=== PATIENT | female | born 1975 | race Caucasian/White ===

== ENCOUNTER 2016-12-04 00:02 | Emergency (ER) | payer OTHER ==
[~2016-12-04] VITALS: Ht 182.9 cm; Wt 113.6 kg
[2016-12-04 00:05] VITALS: BP 129/74; PULSE 79
[2016-12-04] MEDS ORDERED: GLUCOPHAGE1000 MG PO (00:11)
[2016-12-04] MEDS ORDERED: TOPAMAX200 MG PO (00:12)
[2016-12-04] MEDS ORDERED: SINGULAIR 110 MG/TAB PO (00:13)
[2016-12-04] MEDS ORDERED: THE MEDICINE S200 M2 PO (00:14)
[2016-12-04] MEDS ORDERED: PHARMASSURE MA500 MG PO (00:14)
[2016-12-04] MEDS ORDERED: VOLTAREN SR25 MG/TAB PO (00:15)
[2016-12-04] MEDS ORDERED: RIBOFLAVIN400 MG PO (00:15)
[2016-12-04] MEDS ORDERED: AMERGE 2.5MG T2.5 MG PO (00:16)
[2016-12-04] MEDS ORDERED: MAXALT10 MG (00:17)
[2016-12-04 01:17] VITALS: TEMP 97.9
== END 2016-12-04 01:23 | disposition home or self-care (01) ==
LOC: COL.ER 00:02
DX: H18.822 Corneal disorder due to contact lens, left eye (principal); T15.92XA Foreign body on external eye, part unspecified, left eye, initial encounter; G43.909 Migraine, unspecified, not intractable, without status migrainosus

== ENCOUNTER → 2017-06-03 | Outpatient (CLI) | payer BC ==
[~2017-06-03] MED LIST: AMERGE 2.5MG T2.5 MG PO; GLUCOPHAGE1000 MG PO; MAXALT10 MG; PHARMASSURE MA500 MG PO; RIBOFLAVIN400 MG PO; SINGULAIR 110 MG/TAB PO; THE MEDICINE S200 M2 PO; TOPAMAX200 MG PO; VOLTAREN SR25 MG/TAB PO
== END ==
LOC: MC.RAD 06:58
DX: Z12.31 Encounter for screening mammogram for malignant neoplasm of breast (principal)

== ENCOUNTER 2017-08-02 07:07 | Day surgery (SDC) | payer BC ==
[~2017-08-02] VITALS: Ht 182.9 cm; Wt 125.3 kg
[2017-08-02] VITALS (8 sets, daily range): BP systolic 112–134; BP diastolic 74–82; PULSE 54–84; TEMP 97.6–98.7
[~2017-08-02 07:07] MED LIST changes: -GLUCOPHAGE1000 MG PO; +GLUCOPHAGE500 MG/TAB PO; -RIBOFLAVIN400 MG PO; +TOPAMAX 100MG100 M1 PO; -TOPAMAX200 MG PO; +VITAMIN B-2 100MG PO; +VOLTAREN 50MG T50 MG PO; -VOLTAREN SR25 MG/TAB PO
[2017-08-02] MEDS ORDERED: BENADRYL25 M2 PO (07:49)
[2017-08-02] MEDS ORDERED: EPI-PEN JR0.5 MG/ML IM (07:50)
[2017-08-02] MEDS ORDERED: PERCOCET 325 MG1 TA2 PO (09:04)
[2017-08-02] MEDS ORDERED: MOTRIN 800800 MG/TAB PO (09:04)
== END 2017-08-02 18:00 | disposition home or self-care (01) ==
LOC: SDCO 07:07
DX: N88.8 Other specified noninflammatory disorders of cervix uteri (principal); N83.12 Corpus luteum cyst of left ovary; N83.11 Corpus luteum cyst of right ovary; N83.8 Other noninflammatory disorders of ovary, fallopian tube and broad ligament; N92.1 Excessive and frequent menstruation with irregular cycle; E28.2 Polycystic ovarian syndrome; G43.909 Migraine, unspecified, not intractable, without status migrainosus; Z88.0 Allergy status to penicillin; Z88.1 Allergy status to other antibiotic agents; Z79.84 Long term (current) use of oral hypoglycemic drugs; Z87.891 Personal history of nicotine dependence; Z80.3 Family history of malignant neoplasm of breast; Z83.3 Family history of diabetes mellitus; Z82.49 Family history of ischemic heart disease and other diseases of the circulatory system
CPT/HCPCS: A4314; J0690; J1100; J1885; J2405; J2704; J2710; J2765; J3010; J7120

== ENCOUNTER → 2018-01-09 | Outpatient (CLI) | payer BC ==
[~2018-01-09] MED LIST changes: +BENADRYL25 M2 PO; +EPI-PEN JR0.5 MG/ML IM; +MOTRIN 800800 MG/TAB PO; +PERCOCET 325 MG1 TA2 PO
== END ==
LOC: COL.RAD 12:51
DX: M25.551 Pain in right hip (principal); M25.552 Pain in left hip
CPT/HCPCS: J3301; Q9967

== ENCOUNTER → 2018-06-27 | Outpatient (CLI) | payer BC | LOC: MC.RAD 10:40 | DX: Z12.31 Encounter for screening mammogram for malignant neoplasm of breast (principal) ==

== ENCOUNTER 2018-07-04 14:34 | Emergency (ER) | payer BC ==
[~2018-07-04] VITALS: Ht 180.3 cm; Wt 118.2 kg
[2018-07-04 15:18] VITALS: TEMP 98.4
[2018-07-04] MEDS ORDERED: ALEVE 220MG220 MG PO (15:49)
[2018-07-04 15:50] LABS: BASO % 0.2 % (0.0-2.0); EOS # 0.1 (0.0-0.7); EOS % 0.6 % (0-4.0); GRAN # 6.8 (1.4-6.5); GRAN % 84.2 % (42.2-75.2); HEMATOCRIT 44.3 % (37.0-47.0); HEMOGLOBIN 15.1 g/dl (12.5-16.0); LYMPH # 0.8 (1.2-3.4); LYMPH % 9.4 % (20.0-51.0); MEAN CELL VOLUME 91 fl (80.0-100.0); MEAN CORPUSCULAR HEMOGLOBIN 31 pg (27.0-31.0); MEAN CORPUSCULAR HGB CONC 34 g/dl (33.0-37.0); MEAN PLATELET VOLUME 11.6 fl (7.4-10.4); MONO # 0.4 (0.1-0.6); MONO % 5.5 % (1.7-9.3); PLATELET COUNT 203 K/mm3 (130-400); RED BLOOD COUNT 4.86 M/mm3 (4.10-5.30); REDCELL DISTRIBUTION WIDTH-CV 12.9 % (11.5-14.5)
[2018-07-04 16:05] LABS: ALBUMIN 4.2 gm/dL (3.5-5.0); C-REACTIVE PROTEIN 0.9 mg/dL (0.0-0.9); CALCIUM 9.4 mg/dL (8.4-10.2); CREATININE, serum 0.76 mg/dL (0.52-1.25); POTASSIUM 3.8 mmol/L (3.4-5.0); TOTAL PROTEIN 7.3 gm/dL (6.4-8.2)
[2018-07-04 16:20] LABS: STOOL FOR OCCULT BLOOD NEGATIVE (NEGATIVE)
[2018-07-04 16:24] LABS: COLLECTION METHOD CLEAN CATCH
[2018-07-04 16:40] LABS: PH 7 (5-8); SQUAMOUS EPITHELIAL None Seen /hpf; URINE APPEARANCE Clear; URINE BACTERIA Rare /hpf; URINE BILIRUBIN Negative (NEGATIVE); URINE BLOOD Negative (NEGATIVE); URINE COLOR Yellow; URINE GLUCOSE Negative (NEGATIVE); URINE KETONE Negative (NEGATIVE); URINE LEUKOCYTE ESTERASE Negative (NEGATIVE); URINE NITRATE Negative (NEGATIVE); URINE PROTEIN(semi-quant) Negative (NEGATIVE); URINE RBC 0-2 /hpf; URINE UROBILINOGEN Negative (NEGATIVE)
[2018-07-04] MEDS ORDERED: ZOFRAN 4MG T4 MG/TAB PO (17:21)
[2018-07-04 17:28] VITALS: BP 111/71; PULSE 76
== END 2018-07-04 17:33 | disposition home or self-care (01) ==
LOC: COL.ER 14:34
PROVIDERS: Emergency Medicine
DX: J06.9 Acute upper respiratory infection, unspecified (principal); R19.7 Diarrhea, unspecified; R11.0 Nausea; R10.9 Unspecified abdominal pain
CPT/HCPCS: J2405; J7030

== ENCOUNTER → 2019-07-24 | Outpatient (CLI) | payer BC ==
[~2019-07-24] MED LIST changes: +ALEVE 220MG220 MG PO; +ZOFRAN 4MG T4 MG/TAB PO
== END ==
LOC: MC.RAD 07:09
DX: Z12.31 Encounter for screening mammogram for malignant neoplasm of breast (principal)

== ENCOUNTER → 2021-02-07 | Outpatient (CLI) | payer BC | LOC: MC.RAD 08:15 | DX: Z12.31 Encounter for screening mammogram for malignant neoplasm of breast (principal) ==

== ENCOUNTER → 2022-07-19 | Outpatient (CLI) | payer BC ==
[~2022-07-19] MED LIST changes: +CONTRAVE1 TER PO; +EMGALITY120 MG/1 M SQ; +ESTRACE 1MG1 MG/TAB PO; +PRILOSEC10 MG PO; +PROAIR HFA0.09 MG/AC IH; +UBRELVY100 MG PO
== END ==
LOC: MC.RAD 08:59
DX: Z12.31 Encounter for screening mammogram for malignant neoplasm of breast (principal)

== ENCOUNTER 2022-08-18 01:52 | Emergency (ER) | payer BC ==
[~2022-08-18] VITALS: Ht 182.9 cm; Wt 148.2 kg
[2022-08-18 01:54] VITALS: BP 174/137; TEMP 97.1
[2022-08-18 02:45] VITALS: PULSE 69
== END 2022-08-18 02:45 | disposition home or self-care (01) ==
LOC: COL.ER 01:52
DX: R07.0 Pain in throat (principal); K21.9 Gastro-esophageal reflux disease without esophagitis; Z79.899 Other long term (current) drug therapy

== ENCOUNTER → 2023-12-17 | Outpatient (CLI) | payer BC | LOC: MC.RAD 09:49 | DX: Z12.31 Encounter for screening mammogram for malignant neoplasm of breast (principal) ==

== ENCOUNTER 2024-03-20 10:29 | Emergency (ER) | payer BC ==
[~2024-03-20] VITALS: Ht 180.3 cm; Wt 140.9 kg
[2024-03-20 10:33] VITALS: TEMP 97.9
[2024-03-20 11:02] LABS: BASO # 0.1 K/mm3 (0.0-0.2); BASO % 0.8 % (0.0-2.0); EOS # 0.1 K/mm3 (0.0-0.7); EOS % 2.2 % (0.0-4.0); GRAN # 3.4 K/mm3 (1.4-6.5); GRAN % 53.2 % (42.2-75.2); HEMATOCRIT 44.8 % (37.0-47.0); HEMOGLOBIN 15.5 g/dl (12.5-16.0); LYMPH # 2.4 K/mm3 (1.2-3.4); MEAN CELL VOLUME 93 fl (80.0-100.0); MEAN CORPUSCULAR HEMOGLOBIN 32 pg (27-31); MEAN CORPUSCULAR HGB CONC 35 g/dl (33.0-37.0); MEAN PLATELET VOLUME 11.9 fl (7.4-10.4); MONO # 0.4 K/mm3 (0.1-0.6); MONO % 6.6 % (1.7-9.3); PLATELET COUNT 197 K/mm3 (130-400); RED BLOOD COUNT 4.82 M/mm3 (4.10-5.30); REDCELL DISTRIBUTION WIDTH-CV 12.1 % (11.5-14.5)
[2024-03-20 11:13] LABS: ALANINE AMINOTRANSFERASE 77 U/L (0-55); ALBUMIN 4.2 g/dL (3.5-5.0); ALKALINE PHOSPHATASE 123 U/L (40-150); ANION GAP 12 mmol/L (7-16); AST,SGOT 72 U/L (5-34); BILIRUBIN,TOTAL 1.1 mg/dL (0.2-1.2); BLOOD UREA NITROGEN 10 mg/dL (7-19); CALCIUM 9.4 mg/dL (8.4-10.2); CHLORIDE 105 mEq/L (98-107); CREATININE, serum 0.84 mg/dL (0.57-1.11); GLUCOSE 83 mg/dL (70-99); POTASSIUM 4.1 mEq/L (3.5-4.5); SODIUM 140 mEq/L (136-145); TOTAL PROTEIN 7.6 g/dl (6.2-8.1)
[2024-03-20 11:21] LABS: TROPONIN-I < 0.010 ng/mL (0.00-0.033)
[2024-03-20] MEDS ORDERED: Famotidine 20 MG TAB PO ONE (12:30)
[2024-03-20 14:24] VITALS: BP 135/79; PULSE 68
== END 2024-03-20 14:24 | disposition home or self-care (01) ==
LOC: COL.ER 10:29
PROVIDERS: Emergency Medicine
DX: R07.89 Other chest pain (principal); Z87.891 Personal history of nicotine dependence; Z87.19 Personal history of other diseases of the digestive system; Z87.09 Personal history of other diseases of the respiratory system